=== PATIENT | female | born 1985 | race African-American/Black ===

== ENCOUNTER 2016-09-27 15:54 | Emergency (ER) | payer MEDICAID, OTHER ==
[2016-09-27] MEDS ORDERED: KETOROLAC 60 MG/2 ML VIAL IM STA (16:13)
[2016-09-27] MEDS ORDERED: DEXAMETHASONE 10 MG/ML VIAL PO STA (16:13)
[2016-09-27] MEDS ORDERED: DEXAMETHASONE 10 MG/ML VIAL ONE (16:30)
[2016-09-27] MEDS ORDERED: KETOROLAC 60 MG/2 ML VIAL ONE (16:30)
[2016-09-27] MEDS ORDERED: CHERRY SYRUP 10 ML UDC PO ONE (16:30)
== END 2016-09-27 17:07 | disposition home or self-care (01) ==
DX: M46.1 Sacroiliitis, not elsewhere classified (principal)
CPT/HCPCS: 96372; 99283; A9270

== ENCOUNTER 2017-02-19 20:36 | Emergency (ER) | payer MEDICAID ==
[2017-02-19 20:43] VITALS: BP 109/73
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
--- NOTE | 2017-02-19 21:28 | XRAY Report ---
EXAM: RIGHT ELBOW RADIOGRAPHY EXAM DATE: 02/19/2017 09:13 PM. CLINICAL HISTORY: Elbow inj. COMPARISON: None. TECHNIQUE: 3 views. FINDINGS: Bones: Possible tiny nondisplaced avulsion injury of the coronoid process. No other acute fracture or dislocation seen at the elbow. No abnormal osseous lesions. Joints: Normal. No effusion. No subluxation. Soft Tissues: Normal. No soft tissue swelling. IMPRESSION: 1. Possible tiny nondisplaced avulsion injury of the coronoid process. 2. Otherwise normal alignment without evidence for acute fracture or dislocation. No joint effusion i s seen. [facility] Referring Provider Line: [phone] SITE ID: [id number]
== END 2017-02-19 21:35 | disposition home or self-care (01) ==
LOC: ED 20:36
DX: S52.044A Nondisplaced fracture of coronoid process of right ulna, initial encounter for closed fracture (principal); Y08.89XA Assault by other specified means, initial encounter; Y92.009 Unspecified place in unspecified non-institutional (private) residence as the place of occurrence of the external cause
CPT/HCPCS: 99283; 99284

== ENCOUNTER 2017-09-20 17:29 | Emergency (ER) | payer MEDICAID ==
[2017-09-20 18:06] VITALS: BP 105/64
== END 2017-09-20 19:50 | disposition left against medical advice (07) ==
LOC: ED 17:29
DX: Z53.21 Procedure and treatment not carried out due to patient leaving prior to being seen by health care provider (principal)

== ENCOUNTER 2017-09-21 05:55 | Outpatient (CLI) | payer MEDICAID | END 2017-09-21 05:56 | disposition critical access hospital (66) | LOC: EMS 05:55 | PROVIDERS: ATTEND Surgery | DX: M54.5 Low back pain (principal) | CPT/HCPCS: A0425; A0429 ==

== ENCOUNTER 2017-09-21 06:18 | Emergency (ER) | payer MEDICAID ==
[2017-09-21] MEDS ORDERED: HYDROmorphone 1 MG/ML CARPUJECT IM STA (06:33)
--- NOTE | 2017-09-21 06:33 | ED Physician Documentation ---
PD HPI BACK PAIN - Stated complaint Stated Complaint: BACK PAIN - History obtained from History obtained from: Patient - History of Present Illness Timing - onset: How many days ago (2) Timing - duration: Days (2) Timing - details: Abrupt onset Pain level now: 8 Location: Lower, Right Quality: Pain, Spasm, Similar to prior episodes Associated symptoms: No: Fever, Weakness, Numbness, Incontinent of urine, Unable to urinate, Incontinent of stool Improves with: Rest Worsened by: Movement Recently seen: Not recently seen - Additional information Additional information: c/o exacerbation of chronic back pain, sudden onset 2 days ago when she was getting out of the bathtub; no injury. she notes that her back pain is typically left sided, and that this pain is right sided and radiates down RLE; otherwise, she feels this is not different from her typical back pain exacerbations. Review of Systems Constitutional: denies: Fever : denies: Dysuria, Frequency, Unable to Void, Incontinent Musculoskeletal: reports: Back pain Neurologic: denies: Focal weakness, Numbness PD PAST MEDICAL HISTORY - Past Medical History Neuro: Headache/migraine GI: Ulcers Musculoskeletal: Chronic back pain - Past Surgical History Past Surgical History: No - Present Medications Home Medications: Ambulatory Orders Medication Instructions Recorded Confirmed Meloxicam [Mobic] 7.5 mg PO DAILY PRN #20 tablet 09/21/17 diazePAM [Valium] 5 mg PO TID PRN #15 tablet 09/21/17 oxyCODONE/ACET 5/325 [Percocet 5 1 - 2 each PO Q6H PRN #14 tablet 09/21/17 mg/325 mg] - Allergies Allergies/Adverse Reactions: Allergies Allergy/AdvReac Type Severity Reaction Status Date / Time No Known Drug Allergies Allergy Verified 09/21/17 06:21 - Social History Does the pt smoke?: No Smoking Status: Never smoker Does the pt drink ETOH?: Yes Does the pt have substance abuse?: No - Immunizations Immunizations are current?: Yes - POLST Patient has POLST: No PD ED PE NORMAL - Vitals Vital signs reviewed: Yes - General General: Alert and oriented X 3, Well developed/nourished, Other (appears to be in pain) - Back Back: No CVA TTP, No spinal TTP - Derm Derm: Normal color, Warm and dry, No rash - Extremities Extremities: No edema - Neuro Neuro: Alert and oriented X 3, No motor deficit, No sensory deficit Results - Vitals Vitals: Vital Signs - 24 hr 09/21/17 09/21/17 06:19 07:02 Temperature 36.4 C L Heart Rate 74 68 Respiratory 16 16 Rate Blood Pressure 105/89 H 108/52 L O2 Saturation 100 99 Oxygen O2 Source Room air PD MEDICAL DECISION MAKING - ED course Complexity details: reviewed old records, re-evaluated patient (On reevaluation , patient is resting comfortably, reports significant relief of symptoms. ), considered differential, d/w patient Departure - Departure Disposition: Home, Self Care Clinical Impression: Sciatica Condition: Good Instructions: ED Sciatica Follow-Up: [facility] [Provider Group] [facility] [Provider Group] Prescriptions: diazePAM [Valium] 5 mg PO TID PRN #15 tablet PRN Reason: Spasms Meloxicam [Mobic] 7.5 mg PO DAILY PRN #20 tablet PRN Reason: Pain oxyCODONE/ACET 5/325 [Percocet 5 mg/325 mg] 1 - 2 each PO Q6H PRN #14 tablet PRN Reason: Pain Forms: Activity restrictions
[2017-09-21] MEDS ORDERED: DEXAMETHASONE 10 MG/ML VIAL PO STA (06:34)
[2017-09-21 07:03] VITALS: BP 108/52
== END 2017-09-21 08:00 | disposition home or self-care (01) ==
LOC: EDUNIT# → ED 06:18
DX: M54.30 Sciatica, unspecified side (principal); G89.29 Other chronic pain
CPT/HCPCS: 96372; 99283; J1170

== ENCOUNTER 2017-11-02 16:06 | Emergency (ER) | payer MEDICAID ==
[2017-11-02 16:27] VITALS: BP 96/70
--- NOTE | 2017-11-02 17:08 | XRAY Report ---
EXAM: LEFT FOOT RADIOGRAPHY EXAM DATE: 11/02/2017 04:35 PM. CLINICAL HISTORY: Toe pain. COMPARISON: None. TECHNIQUE: 3 views. FINDINGS: Bones: Normal. No fractures or bone lesions. Joints: Normal. No subluxations. Soft Tissues: Normal. No soft tissue swelling. IMPRESSION: Negative foot radiography. [facility] Referring Provider Line: [phone] SITE ID: [id number]
--- NOTE | 2017-11-02 17:37 | ED Physician Documentation ---
PD HPI LOWER EXT INJURY - Stated complaint Stated Complaint: LT TOE PX/SWOLLEN - Chief complaint Chief Complaint: Ext Problem - History obtained from History obtained from: Patient - History of Present Illness PD HPI LOW EXT INJURY LOCATION: Left, Toe (second toe) Type of injury: Other (awoke with it hurting 3 days ago and continues to hurt. No noted injury. Has mild swelling. No sores nor redness. Great toe not hurting. ). No: Twist, Blunt / blow Timing - onset: How many days ago (3) Timing - duration: Days (3) Timing - details: Gradual onset, Still present Improved by: Rest Worsened by: Moving, Palpating Associated symptoms: Swelling. No: Weakness, Numbness, Discolored Similar symptoms before: Has not had sx before Review of Systems Constitutional: denies: Fever, Chills, Myalgias Skin: denies: Rash, Lesions Neurologic: denies: Focal weakness, Numbness PD PAST MEDICAL HISTORY - Past Medical History Past Medical History: Yes GI: Ulcers Musculoskeletal: Chronic back pain - Past Surgical History Past Surgical History: No - Present Medications Home Medications: Ambulatory Orders Medication Instructions Recorded Confirmed diazePAM [Valium] 5 mg PO TID PRN #15 tablet 09/21/17 oxyCODONE/ACET 5/325 [Percocet 5 1 - 2 each PO Q6H PRN #14 tablet 09/21/17 mg/325 mg] - Allergies Allergies/Adverse Reactions: Allergies Allergy/AdvReac Type Severity Reaction Status Date / Time No Known Drug Allergies Allergy Verified 11/02/17 16:26 - Social History Does the pt smoke?: No Smoking Status: Never smoker Does the pt drink ETOH?: Yes Does the pt have substance abuse?: No - Immunizations Immunizations are current?: Yes - POLST Patient has POLST: No PD ED PE NORMAL - Vitals Vital signs reviewed: Yes - General General: Alert and oriented X 3, No acute distress, Well developed/nourished - Derm Derm: Normal color, Warm and dry, No rash - Extremities Extremities: Other (second toe with tenderness at base with slight swelling. No redness. Normal color and cap refill. ) - Neuro Neuro: Alert and oriented X 3, No motor deficit, No sensory deficit, Normal speech Results - Vitals Vitals: Oxygen O2 Source Room air - Rads (name of study) toes Radiology: Prelim report reviewed, EMP read contemporaneously (no fracture) PD MEDICAL DECISION MAKING - ED course Complexity details: considered differential (no fracture; presume contusion/ sprain. No signs of infection nor rash. Good color and cap refill. ), d/w patient, d/w family Departure - Departure Disposition: Home, Self Care Clinical Impression: Toe pain, left Condition: Stable Record reviewed to determine appropriate education?: Yes Comments: The x-ray appears normal without any fractures or other bone abnormalities. The toe itself looks okay in appearance without signs of infection. I presume it some inflammation or irritation of the joint or tendons. You could use some ibuprofen or naproxen to 3 times a day. Activity as able. Ac tape to help support it. Recheck if not better over the next few days to week. Discharge Date/Time: 11/02/17 18:15
== END 2017-11-02 18:15 | disposition home or self-care (01) ==
LOC: ED 16:06
DX: M79.675 Pain in left toe(s) (principal)
CPT/HCPCS: 99282; 99283